=== PATIENT | female | born 1945 | race African-American/Black ===

== ENCOUNTER 2019-11-15 11:23 | Emergency (ER) | payer MEDICARE, MEDICAID ==
[~2019-11-15] VITALS: Ht 160 cm; Wt 70.0 kg
[2019-11-15 12:40] VITALS: BP 142/86
== END 2019-11-15 12:53 | disposition home or self-care (01) ==
LOC: EMS 11:25
DX: B08.1 Molluscum contagiosum (principal); I10 Essential (primary) hypertension; E11.9 Type 2 diabetes mellitus without complications